=== PATIENT | female | born 1935 | race Caucasian/White ===

== ENCOUNTER 2016-05-23 14:22 | Inpatient (IN) | payer MEDICARE ==
[~2016-05-23] VITALS: Ht 153.7 cm; Wt 107.4 kg
[2016-05-23] MEDS ORDERED: PROMETHAZINE 25 MG/ML VIAL IV PRN (14:30)
[2016-05-23] MEDS ORDERED: ACETAMINOPHEN 325 MG TAB PO PRN (14:30)
[2016-05-23] MEDS ORDERED: ONDANSETRON 4 MG VIAL IV PUSH PRN (14:30)
[2016-05-23] MEDS ORDERED: DUONEB INH PRN (14:30)
[2016-05-23] MEDS ORDERED: LACTULOSE SOLN 20GM/30ML UDC PO PRN (14:30)
[2016-05-23] MEDS ORDERED: DILAUDID 1 MG/ML AMP IV PRN (14:30)
[2016-05-23] MEDS ORDERED: ALU/MAG/SIM 30 ML UDC PO PRN (14:30)
[2016-05-23] MEDS ORDERED: SALINE FLUSH 10 ML FLUSH PRN (14:30)
[2016-05-23 16:22] VITALS: BP_SYST 138; BP_SYST 144; RESP 22; TEMP 98.2
[2016-05-23 16:24] VITALS: Ht 153.7 cm; Wt 107.4 kg
[2016-05-23] MEDS: NEB-BUDESONIDE 0.25 MG INH SCH (17:04)
[2016-05-23] MEDS: NEB-BROVANA 15 MCG/2 ML INH SCH (17:04)
[2016-05-23 17:06] VITALS: RESP 18
[2016-05-23] MEDS: CEFTRIAXONE 2 GM in SODIUM CHLORIDE 0.9% 50 ML IV SCH (17:31)
[2016-05-23] MEDS: AZITHROMYCIN 250 MG TAB PO SCH (17:32)
[2016-05-23] MEDS: METHYLPRED SOD SUCC 40 MG VIAL IV SCH (17:32)
[2016-05-23] MEDS: FENOFIBRATE 145 MG TAB PO SCH (19:01)
[2016-05-23] MEDS: FEXOFENADINE 180 MG TAB PO SCH (19:01)
[2016-05-23] MEDS: PAROXETINE HCL 20 MG TAB PO SCH (19:02)
[2016-05-23 19:08] VITALS: BP_SYST 152; RESP 20; TEMP 97.5
[2016-05-23] MEDS: ALPRAZOLAM 0.25 MG TAB PO PRN (20:45)
[2016-05-23] MEDS: METOPROLOL XL 25 MG TAB PO SCH (20:47)
[2016-05-23] MEDS: Atorvastatin 20 MG TAB PO SCH (20:53)
[2016-05-23] MEDS: CYCLOSPORINE OP SOLN EYE EACH SCH (20:53)
[2016-05-23] MEDS: SALINE FLUSH 10 ML FLUSH SCH (20:53)
[2016-05-23 22:54] VITALS: BP_SYST 145; RESP 22; TEMP 97.9
[2016-05-24] MEDS: METHYLPRED SOD SUCC 40 MG VIAL IV SCH ×3 (00:20→15:08)
[2016-05-24 03:10] VITALS: BP_SYST 140; RESP 20; TEMP 98
[2016-05-24] MEDS: SODIUM CHLORIDE 0.9% FLUSH BAG 500 ML IV SCH (05:23)
[2016-05-24] MEDS ORDERED: MISSING DOSE XX ONE (05:25)
[2016-05-24] MEDS: LEVOTHYROXINE 0.075 MG TAB PO SCH (05:25)
[2016-05-24] MEDS: NEB-BROVANA 15 MCG/2 ML INH SCH ×2 (05:41→20:21)
[2016-05-24] MEDS: NEB-BUDESONIDE 0.25 MG INH SCH ×2 (05:42→20:21)
[2016-05-24 07:17] VITALS: BP_SYST 123; RESP 20; TEMP 97.7
[2016-05-24] MEDS: SALINE FLUSH 10 ML FLUSH SCH ×2 (08:28→20:59)
[2016-05-24] MEDS: FENOFIBRATE 145 MG TAB PO SCH (08:29)
[2016-05-24] MEDS: AZITHROMYCIN 250 MG TAB PO SCH (08:29)
[2016-05-24] MEDS: FEXOFENADINE 180 MG TAB PO SCH (08:29)
[2016-05-24] MEDS: CYCLOSPORINE OP SOLN EYE EACH SCH ×2 (08:30→21:00)
[2016-05-24] MEDS: CEFTRIAXONE 2 GM in SODIUM CHLORIDE 0.9% 50 ML IV SCH (08:30)
[2016-05-24] MEDS: PAROXETINE HCL 20 MG TAB PO SCH (08:30)
[2016-05-24] MEDS: Furosemide 20 MG TAB PO SCH (10:50)
[2016-05-24 10:54] VITALS: BP_SYST 146; RESP 20; TEMP 97.7
[2016-05-24 15:12] VITALS: BP_SYST 118; RESP 20; TEMP 97.2
[2016-05-24 19:40] VITALS: BP_SYST 158; RESP 20; TEMP 98.1
[2016-05-24] MEDS: METOPROLOL XL 25 MG TAB PO SCH (20:57)
[2016-05-24] MEDS: Atorvastatin 20 MG TAB PO SCH (20:57)
[2016-05-24] MEDS: ALPRAZOLAM 0.25 MG TAB PO PRN (21:09)
[2016-05-25] VITALS (7 sets, daily range): BP systolic 114–155; RESP 18–20; TEMP 97.3–98.1
[2016-05-25] MEDS: METHYLPRED SOD SUCC 40 MG VIAL IV SCH ×2 (00:30→08:45)
[2016-05-25] MEDS: LEVOTHYROXINE 0.075 MG TAB PO SCH (06:39)
[2016-05-25] MEDS: SODIUM CHLORIDE 0.9% FLUSH BAG 500 ML IV SCH (06:41)
[2016-05-25] MEDS: NEB-BROVANA 15 MCG/2 ML INH SCH ×2 (06:55→19:05)
[2016-05-25] MEDS: NEB-BUDESONIDE 0.25 MG INH SCH ×2 (06:55→19:05)
[2016-05-25] MEDS: SALINE FLUSH 10 ML FLUSH SCH ×2 (08:45→20:49)
[2016-05-25] MEDS: CYCLOSPORINE OP SOLN EYE EACH SCH ×2 (08:47→20:50)
[2016-05-25] MEDS: CEFTRIAXONE 2 GM in SODIUM CHLORIDE 0.9% 50 ML IV SCH (08:47)
[2016-05-25] MEDS: FEXOFENADINE 180 MG TAB PO SCH (08:48)
[2016-05-25] MEDS: AZITHROMYCIN 250 MG TAB PO SCH (08:49)
[2016-05-25] MEDS: Furosemide 20 MG TAB PO SCH ×2 (08:49→09:01)
[2016-05-25] MEDS: FENOFIBRATE 145 MG TAB PO SCH (08:49)
[2016-05-25] MEDS: PAROXETINE HCL 20 MG TAB PO SCH (08:49)
[2016-05-25] MEDS: Atorvastatin 20 MG TAB PO SCH (20:50)
[2016-05-25] MEDS: METOPROLOL XL 25 MG TAB PO SCH (20:50)
[2016-05-25] MEDS: ALPRAZOLAM 0.25 MG TAB PO PRN (20:55)
[2016-05-26] VITALS (7 sets, daily range): BP systolic 113–151; RESP 18–20; TEMP 97.5–98.1
[2016-05-26] MEDS: ALPRAZOLAM 0.25 MG TAB PO PRN ×2 (00:24→21:43)
[2016-05-26] MEDS: SODIUM CHLORIDE 0.9% FLUSH BAG 500 ML IV SCH (06:50)
[2016-05-26] MEDS: LEVOTHYROXINE 0.075 MG TAB PO SCH (06:54)
[2016-05-26] MEDS: NEB-BUDESONIDE 0.25 MG INH SCH ×2 (07:13→19:52)
[2016-05-26] MEDS: NEB-BROVANA 15 MCG/2 ML INH SCH ×2 (07:13→19:52)
[2016-05-26] MEDS: SALINE FLUSH 10 ML FLUSH SCH (09:20)
[2016-05-26] MEDS: CYCLOSPORINE OP SOLN EYE EACH SCH ×2 (09:20→21:43)
[2016-05-26] MEDS: CEFTRIAXONE 2 GM in SODIUM CHLORIDE 0.9% 50 ML IV SCH (09:20)
[2016-05-26] MEDS: Furosemide 20 MG TAB PO SCH (09:20)
[2016-05-26] MEDS: PAROXETINE HCL 20 MG TAB PO SCH (09:21)
[2016-05-26] MEDS: AZITHROMYCIN 250 MG TAB PO SCH (09:21)
[2016-05-26] MEDS: FENOFIBRATE 145 MG TAB PO SCH (09:21)
[2016-05-26] MEDS: FEXOFENADINE 180 MG TAB PO SCH (09:21)
[2016-05-26] MEDS ORDERED: KCL CR 10 MEQ CAP PO ONE (12:35)
[2016-05-26] MEDS ORDERED: Furosemide 40 MG/4 ML VIAL IV ONE (12:35)
[2016-05-26] MEDS: Atorvastatin 20 MG TAB PO SCH (21:42)
[2016-05-26] MEDS: METOPROLOL XL 25 MG TAB PO SCH (21:43)
[2016-05-27 02:48] VITALS: BP_SYST 121; RESP 18; TEMP 97.6
[2016-05-27] MEDS: SALINE FLUSH 10 ML FLUSH SCH ×2 (05:33→08:44)
[2016-05-27] MEDS: SODIUM CHLORIDE 0.9% FLUSH BAG 500 ML IV SCH (06:28)
[2016-05-27] MEDS: LEVOTHYROXINE 0.075 MG TAB PO SCH (06:42)
[2016-05-27] MEDS: NEB-BUDESONIDE 0.25 MG INH SCH (07:30)
[2016-05-27] MEDS: NEB-BROVANA 15 MCG/2 ML INH SCH (07:30)
[2016-05-27 07:45] VITALS: BP_SYST 116; RESP 18; TEMP 97.3
[2016-05-27] MEDS: CYCLOSPORINE OP SOLN EYE EACH SCH (08:44)
[2016-05-27] MEDS: CEFTRIAXONE 2 GM in SODIUM CHLORIDE 0.9% 50 ML IV SCH (08:44)
[2016-05-27] MEDS: FEXOFENADINE 180 MG TAB PO SCH (08:44)
[2016-05-27] MEDS: FENOFIBRATE 145 MG TAB PO SCH (08:44)
[2016-05-27] MEDS: AZITHROMYCIN 250 MG TAB PO SCH (08:44)
[2016-05-27] MEDS: PAROXETINE HCL 20 MG TAB PO SCH (08:44)
[2016-05-27] MEDS: Furosemide 20 MG TAB PO SCH (08:45)
[2016-05-27 11:26] VITALS: BP_SYST 103; RESP 20; TEMP 97.8
[2016-05-27 13:15] VITALS: BP_SYST 103; RESP 20; TEMP 97.8
== END 2016-05-27 15:46 | disposition home or self-care (01) | DRG 192 ==
LOC: ENRESERVDT → ENRESERVTM → ENPENDDIS 15:23 → 4NT 15:23
PROVIDERS: ADMIT Internal Medicine Nephrology; ATTEND Internal Medicine Nephrology
CPT/HCPCS: 71250; 80053; 85025; 85610; 85730; 94640; 94799